=== PATIENT | female | born 1935 | race Caucasian/White ===

== ENCOUNTER 2016-06-05 16:47 | Inpatient (IN) | payer MEDICARE ==
--- NOTE | ~2016-06-05 | HP ---
History And Physical [id number] [place]. [address] NAME: AXEL LINDO : 33 STATUS : ADM IN [facility]#: [id number] AGE: 80 ADM/REG DATE : 06/05/16 MR#: [id number] REPORT SERV DATE: 06/06/16 DICTATED BY: TORI DILLARD DATE: 06/06/16 REPORT STATUS : Draft TRANSCRIBED BY: MODWiley DATE: 06/06/16 DATE OF ADMISSION: 06/05/2016 CHIEF COMPLAINT: An 80-year-old female presenting with increasing shortness of breath and confusion. HISTORY OF PRESENT ILLNESS: The patient's history was obtained through careful interview with the patient and son, coupled with review of [facility] medical records. The patient has been at [facility] since 02/2016 when she underwent a left hip replacement. She has had poor recovery despite attempts with physical therapy to improve her condition, although she has successfully begun to walk some and use a walker. She still cannot do simple things like bathe on her own or dress herself. Over the last two days, she has had particular difficulty with physical therapy and any kind of activity. She developed dyspnea on exertion and a cough productive of yellow sputum. Two days ago, she was placed on a Z-Sathish, but it has not helped her condition at all. She has had subjective fevers and chills, and apparently, one measured up to 100.2. She describes chronic mid lower back discomfort, aching quality, but states it is only a 2/10 severity. Then, finally, today, the patient became confused, disoriented, began hallucinating, and developed paranoid delusional thought patterns. She has had nausea, but no vomiting, no diarrhea. She has chronic lower extremity edema. No lightheadedness. The patient does occasionally have dysphagia. This is a chronic problem though and is not particularly worsened with this illness. No chest pain. No abdominal pain. REVIEW OF SYSTEMS: Otherwise, a 14-point review of systems was obtained and was negative. PAST MEDICAL HISTORY: 1. Coronary artery disease, status post CABG. 2. Diastolic congestive heart failure with left ventricular hypertrophy. 3. Asthma. 4. Pulmonary nodules with negative bronchoscopy, seen by Dr. Dutton. 5. Neuropathy. 6. Glaucoma. 7. Chronic lower extremity edema. 8. SIADH. History And Physical [address] [place]. [address] NAME: AXEL LINDO : 33 STATUS : ADM IN [facility]#: [id number] AGE: 80 ADM/REG DATE : 06/05/16 MR#: [id number] REPORT SERV DATE: 06/06/16 DICTATED BY: TORI DILLARD DATE: 06/06/16 REPORT STATUS : Draft TRANSCRIBED BY: EVELYN DATE: 06/06/16 9. Hypertension. 10.Elevated cholesterol. 11.Urinary tract infection with E. coli sepsis and bacteremia in 2015. 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 13.Paroxysmal atrial fibrillation. 14.Compression fractures of the spine. 15.Esophageal stricture. 16.Epidural injection of the spine. 17.Large hiatal hernia. 18.Cholelithiasis. PAST SURGICAL HISTORY: 1. Kyphoplasty x2. 2. CABG in 2003. 3. Left patella surgery. 4. Hysterectomy. 5. Urethral sling. 6. Left shoulder surgery. 7. Left hip surgery in 02/2016. ALLERGIES: PENICILLIN, NEOMYCIN, AND SULFA. SOCIAL HISTORY: Never been a smoker. Does not drink alcohol. Has one son. Now resides at [facility]. Has been a for about 12 years. 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 FAMILY HISTORY: Father with bipolar disorder. She has no siblings. CURRENT MEDICATIONS: Unknown at this time, but have been requested from pharmacy. PHYSICAL EXAMINATION: VITAL SIGNS: Temperature 99, pulse 108, blood pressure 147/73, respiratory rate 23, O2 saturation 93% on 4 L nasal cannula. GENERAL: An ill-appearing female in some distress secondary to shortness of breath. HEENT: Pupils equal, round, and reactive to light. No conjunctival pallor. No scleral icterus. Nares are patent. Oropharynx is clear of obstruction. Moist mucous membranes. NECK: Trachea midline. No thyromegaly. LYMPH: No cervical lymphadenopathy. No supraclavicular lymphadenopathy. RESPIRATORY: The patient has significant focal egophony in the right lower and middle lung with diminished breath sounds. There are scattered upper respiratory rhonchi on examination too, but no current wheezes. No wet rales. No dullness to percussion to suggest effusion. The patient has a quite labored respiratory effort. CARDIOVASCULAR: Tachycardic. Regular rhythm. No murmurs, rubs, or gallops. No extremity edema is appreciated other than chronic changes. ABDOMEN: Soft, nontender, nondistended. Normal bowel sounds auscultated throughout. No History And Physical [address] [address] NAME: AXEL LINDO : 33 STATUS : ADM IN PAT#: [id number] AGE: 80 ADM/REG DATE : 06/05/16 MR#: [id number] REPORT SERV DATE: 06/06/16 DICTATED BY: TORI DILLARD DATE: 06/06/16 REPORT STATUS : Draft TRANSCRIBED BY: EVELYN DATE: 06/06/16 hepatosplenomegaly. DERMATOLOGICAL: Warm and dry extremities. No pallor. No cyanosis. PSYCHIATRIC: Normal affect. Good mood. Alert and oriented x3. LABORATORY DATA: White blood cell count 15, hemoglobin 13, hematocrit 39, platelets 392. Sodium 135, potassium 3.8, chloride 92, bicarb 34, BUN 7, creatinine 0.56, glucose 108. Brain natriuretic peptide 172. Troponin negative. Lactic acid 0.5. INR 1.3. ABG demonstrates a pH of 7.42, a PaCO2 of 52, a PaO2 of 71, and a bicarb of 33. STUDIES: Chest x-ray by my own evaluation shows dense right middle lung pneumonia compared to 02/2016. ASSESSMENT AND PLAN: 1. Sepsis with white blood cell count of 15, tachycardia, tachypnea, hypoxic encephalopathy. Check blood cultures. Place on IV antibiotics. 2. Facility-acquired pneumonia. Check blood cultures. Check sputum culture. Place on IV antibiotics. 3. Chronic dysphagia. Obtain a speech therapy evaluation. Check swallow studies. 4. Late effects of polio. 5. Hypoxemic respiratory failure. Provide supportive care. COLEL/EVELYN Tori Dillard M.D. / [id number] CC: Nancy Crews M.D. David Bowers, M.D.
--- NOTE | ~2016-06-05 | DS ---
Discharge Summary [facility] [address] [facility] [place] [place]. [address] NAME: AXEL MARTÍNEZ : 33 STATUS : DIS IN PAT#: [id number] AGE: 80 ADM/REG DATE : 06/05/16 MR#: [id number] REPORT SERV DATE: 06/14/16 DICTATED BY: YANDEL BAEZ DATE: 06/14/16 REPORT STATUS : Draft TRANSCRIBED BY: MODL DATE: 06/14/16 ADMISSION DATE: 06/05/2016 DISCHARGE DATE: 06/14/2016 REASON FOR ADMISSION: Acute respiratory failure and acute asthma exacerbation, acute on chronic diastolic heart failure exacerbation and pneumonia. HISTORY OF PRESENT ILLNESS: Please refer to Dr. Baljinder Marinelli's history and physical dated 06/08/2011 for complete details regarding the patient's admission. In brief, the patient was admitted to the Hospitalist Service for sepsis secondary to pneumonia along with asthma exacerbation and hypoxic failure. HOSPITAL COURSE: From admission to 06/10/2016, please refer to Dr. Vikki Doe's interim summary. In brief, Dr. Doe had diagnosed the patient with acute respiratory failure likely secondary to diastolic dysfunction and asthma exacerbation along with urinary retention, hypertension, and chronic dysphagia. The patient was initially treated with IV steroids, bronchodilators, and showed some improvement along with some IV diuretics. I assumed care of this patient by Dr. Doe on 06/11/2016, at which point, her sputum culture came back positive for Pseudomonas and Klebsiella. I then started IV Levaquin on her. Her diuresis was then switched from IV to oral. Physical Therapy had recommended going back to [facility] for rehab. She was in a stable condition at the time of discharge. Her lung exam was clear to auscultation. She has reached maximal hospitalization and is stable for discharge. DISCHARGE DIAGNOSES: Sepsis secondary to Klebsiella and Pseudomonas pneumonia; acute on chronic hypoxic respiratory failure, now resolved; acute on chronic diastolic heart failure exacerbation, now resolved; acute on chronic asthma exacerbation, now resolved; urinary retention, now resolved; chronic dysphagia; large hiatal hernia; and debility. PROCEDURES: Include chest x-ray. DISCHARGE MEDICATIONS: Include amlodipine 5 mg once a day, vitamin C, aspirin 81 mg once a day, Combigan eye drop every 12 hours in both eyes, BuSpar 10 mg twice a day, estradiol, ranitidine 300 mg at bedtime, iron sulfate 325 mg twice a day, furosemide 20 mg daily, gabapentin 100 mg daily, Xalatan one drop at bedtime, Remeron 15 mg at bedtime, Singulair daily, multivitamin daily, Nexium 40 mg daily, MiraLAX daily, Klor-Con 20 mEq daily, Zoloft 50 mg daily, Asmanex and DuoNebs p.r.n., Crestor 10 mg daily, tramadol p.r.n., Atarax p.r.n., and Levaquin 750 mg once a day for seven days. This is Dr. Yandel Baez spending over 30 minutes in discharge planning and coordination of care of Ms. Martínez. GENEVIEVE/EVELYN Yandel Zavala Discharge Summary [address] [address] NAME: AXEL MARTÍNEZ : 33 STATUS : DIS IN PAT#: [id number] AGE: 80 ADM/REG DATE : 06/05/16 MR#: [id number] REPORT SERV DATE: 06/14/16 DICTATED BY: YANDEL BAEZ DATE: 06/14/16 REPORT STATUS : Draft TRANSCRIBED BY: EVELYN DATE: 06/14/16 MD Nestor / [id number] CC: MD Laith Pathak M.D.
--- NOTE | ~2016-06-05 | IDS ---
Interim Discharge Summary [facility] [address] [place]. [address] NAME: AXEL LINDO : 33 STATUS : ADM IN [facility]#: [id number] AGE: 80 ADM/REG DATE : 06/05/16 MR#: [id number] REPORT SERV DATE: 06/10/16 DICTATED BY: VIKKI DOE DATE: 06/10/16 REPORT STATUS : Draft TRANSCRIBED BY: MODL DATE: 06/10/16 ADMISSION DATE: 06/05/2016 DISCHARGE DATE: PROBLEM LIST: 1. Acute respiratory failure, multifactorial, more likely related to diastolic dysfunction and asthma exacerbation. 2. Acute and chronic asthma exacerbation. 3. Acute on chronic diastolic dysfunction. She was treated with IV steroid and IV diuretics and improved significantly. 4. Hypertension. 5. Urinary retention, status post Ledbetter catheter insertion and the Ledbetter was discontinued today. 6. Chronic dysphagia. 7. No evidence of pneumonia on this admission. HISTORY OF PRESENT ILLNESS: This is an 80-year-old [facility] long-term resident, came to the hospital with short of breath. Please see dictated H and P. HOSPITAL COURSE: She has been having issue with dysphagia and cough for a while. When she came in here, her procalcitonin was less than 0.05 and also x-ray did not show significant infiltrates. The patient has been treated for asthma exacerbation with IV steroid and bronchodilator and had improvement, and also she was treated with IV diuretics and had improvement on her breathing and cough. She does have some coarse sound here and there. It has been getting dried much more along with this treatment. She had improvement overall. She is able to ambulate with minimal assistance. She does have chronic dysphagia, had a swallow evaluation, did not show significant symptoms of aspiration. She said she knows which food that she can take and she cannot take. Overall, had improvement. She is a very frail 80-year-old female patient. She is using an oxygen on and off from [facility], and she is on two to three liters of oxygen and making adequate oxygenation. She had improvement and she has been making good I's and O's negative. In order to return her [facility] and long time, we had to have the PT evaluation and reapproval from the insurance company which has started the work today. She will be on bronchodilator treatment and nebulizer treatment and systemic steroid with oral prednisone and waiting for the discharge approval. DYLAN/EVELYN Vikki Doe M.D. / [id number] Interim Discharge Summary [address] [address] NAME: AXEL LINDO : 33 STATUS : ADM IN PAT#: [id number] AGE: 80 ADM/REG DATE : 06/05/16 MR#: [id number] REPORT SERV DATE: 06/10/16 DICTATED BY: VIKKI DOE DATE: 06/10/16 REPORT STATUS : Draft TRANSCRIBED BY: EVELYN DATE: 06/10/16 CC: Nancy Crews RICHARD CURTIS
[~2016-06-05 16:47] MED LIST: 8 HOUR650 MG PO; A AND D T; A&D OINTMENT TOP; ACET500CAP PO; ADVIL PO; ALEVE220 MG PO; ASAB PO; ASMANEX100 INH; ASMANEX200 INH; AT25 PO; ATV1 PO; BACDS PO; BL FLAX SEED1000 MG PO; CENTRUM PO; CLOBETASOL0.051 EX; CLOBETASOL0.051 TOP; COMBIGAN0.2 MG/0.5 OP; COMBIGAN0.2 MG/0.5 OPH; COZAAR100 MG PO; CRESTOR10 PO; DIOV160 PO; ESTRACE VAG0.1 MG/GM V; ESTRACE VAGIN42.5 GM V; ESTRACE0.5 MG TOP; FLAXSEED OIL1000 MG PO; FOSAMAX70 MG PO; GLUCCHONDR PO; GLUCOSAMINE1 TA2 PO; GLUCOSAMINEPO PO; L20 PO; LIQUID TEARS OP; MIRALAXPKT PO; MULTIPLE VIT PO; NEUR100 PO; NEXIUM40 PO; NITROQUICK0.4 MG SL; NORCO1 TAB PO; NORV5 PO; OS500+D PO; PRILO PO; PRIN10 PO; PROAIR HFA INH; SENTAB PO; SILTUSSIN100 MG/5 M PO; SINGULAIR1 PO; TEMOVATE0.051 TOP; TRAVATAN Z0.004 % OPH; TRIMO-SAN VA; VITAMIN D31000 UNIT PO; VITC500 PO; XALAT OPH; ZANTAC300 MG PO
[2016-06-05 17:24] LABS: ALLENS TEST Pos; BE (BASE EXCESS) 7.2 MEQ/L (0 +/- 2.5); CARBOXYHEMOGLOBIN 1.3 % (0-3); DEVICE NC; HCO3 (ACTUAL BICARBONATE) 33.1 MEQ/L (23-27); HEMOBLOGIN CONTENT 13.5 G/DL (12-16); INSTRUMENT SERIAL # 8087; METHEMOGLOBIN 0.3 % (0-3); O2 CONTENT 17.6 VOL% (18-24); PCO2 (CO2 TENSION) 52 MMHG (35-45); PO2 (O2 TENSION) 71 MMHG (79-93); SAMPLE Arterial; pH 7.42 (7.37-7.43)
[2016-06-05 17:50] LABS: BASOPHILS 0.2 %; BASOPHILS ABSOLUTE 0.03 10/3/uL (0.0-0.16); EOSINOPHILS 0.6 %; EOSINOPHILS ABSOLUTE 0.09 10/3/uL (0.0-0.53); HEMATOCRIT 39.3 % (36.0-48.0); HEMOGLOBIN 12.8 g/dL (12.0-16.0); IMMATURE GRANULOCYTES 0.3 %; IMMATURE GRANULOCYTES ABSOLUTE 0.05 10/3/uL (0.0-0.11); LYMPHOCYTES 7.1 %; LYMPHOCYTES ABSOLUTE 1.06 10/3/uL (0.67-4.30); MEAN CORPUS HGB CONC 32.6 g/dL (32.0-36.0); MEAN CORPUSCULAR HEMOGLOB 30.8 pg (26.0-34.0); MEAN CORPUSCULAR VOLUME 94.7 fL (80-100); MONOCYTES 7.4 %; MONOCYTES ABSOLUTE 1.11 10/3/uL (0.21-1.20); NEUTROPHILS 84.4 %; NEUTROPHILS ABSOLUTE 12.64 10/3/uL (2.02-8.40); RBC DISTRIBUTION WIDTH 13.4 % (12.0-16.0); RED CELL COUNT 4.15 10/6/uL (4.0-5.6)
[2016-06-05 17:51] LABS: ER CBC TAT 0 Hrs 07 Mins; MANUAL DIFF NO %; PLATELET COUNT 392 10/3/uL (150-400)
[2016-06-05 18:04] LABS: INTERNATIONAL NORMAL RATI 1.3 UNITS (-)
[2016-06-05 18:06] LABS: CHEST PAIN PROFILE TAT 0 Hrs 22 Mins; CHLORIDE, SERUM 92 MMOL/L (96-112); CO2 (CARBON DIOXIDE) 34 MMOL/L (24-34); CREATININE 0.56 MG/DL (0.55-1.02); GFR AFRICAN AMERICAN 101 ML/MIN (>=60); GFR NON AFRICAN AMERICAN 87 ML/MIN (>=60); POTASSIUM, SERUM 3.8 MMOL/L (3.5-5.3); PROTIME (NOT ORD) 15.7 SEC (12.0-14.5); SODIUM, SERUM 135 MMOL/L (135-148); TROPONIN I <0.02 NG/ML (<0.05)
[2016-06-05 18:07] LABS: BUN (BLOOD UREA NITROGEN) 7 MG/DL (6-23); GLUCOSE, SERUM 108 MG/DL (60-99)
[2016-06-05 18:20] LABS: LACTATE 0.5 MMOL/L (0.3-2.4)
[2016-06-05] MEDS ORDERED: ACETYLCYSTEINE INH (20:20)
[2016-06-05] MEDS ORDERED: ASMANEX200 INH (20:21)
[2016-06-05] MEDS ORDERED: NORV5 PO (20:21)
[2016-06-05] MEDS ORDERED: ZITH250 PO (20:22)
[2016-06-05] MEDS ORDERED: ASAB PO (20:22)
[2016-06-05] MEDS ORDERED: BUSPAR10 PO (20:23)
[2016-06-05] MEDS ORDERED: COMBIGAN0.2 MG/0.5 OPH (20:24)
[2016-06-05] MEDS ORDERED: ESTRACE VAGIN42.5 GM V (20:25)
[2016-06-05] MEDS ORDERED: FERROUS SULF325 M1 PO (20:25)
[2016-06-05] MEDS ORDERED: MIRALAX POWDER1 PKT PO (20:26)
[2016-06-05] MEDS ORDERED: NEUR100 PO (20:26)
[2016-06-05] MEDS ORDERED: L20 PO (20:26)
[2016-06-05] MEDS ORDERED: DUONEB INH (20:27)
[2016-06-05] MEDS ORDERED: REM15 PO (20:27)
[2016-06-05] MEDS ORDERED: XALAT OPH (20:27)
[2016-06-05] MEDS ORDERED: MULTIVITAMI1 PO (20:28)
[2016-06-05] MEDS ORDERED: SINGULAIR1 PO (20:28)
[2016-06-05] MEDS ORDERED: NEXIUM40 PO (20:28)
[2016-06-05] MEDS ORDERED: RANITIDINE300 MG PO (20:29)
[2016-06-05] MEDS ORDERED: KLOR-CON M2020 MEQ PO (20:29)
[2016-06-05] MEDS ORDERED: ULTRAM50 PO (20:30)
[2016-06-05] MEDS ORDERED: CRESTOR10 PO (20:30)
[2016-06-05] MEDS ORDERED: ZOL50 PO (20:30)
[2016-06-05] MEDS ORDERED: VITC500 PO (20:31)
[2016-06-05] MEDS ORDERED: AT25 PO (20:31)
[2016-06-05] MEDS ORDERED: SILTUSSIN100 MG/5 M PO (20:32)
[2016-06-06 06:06] LABS: ASCORBIC ACID (UR NOT ORDER) NEG (NEG); BILIRUBIN, URINE NEGATIVE (NEG); KETONE, URINE NEGATIVE (NEG); WBC (NOT ORDERED) (RFLEX) 13 (0-5)
[2016-06-06 06:18] LABS: LEUKOCYTE ESTERASE(NOT OR TRACE (NEG)
[2016-06-06 08:36] LABS: ALBUMIN 2.3 G/DL (3.5-5.0); CALCIUM, SERUM 9.1 MG/DL (8.5-10.4); CHLORIDE, SERUM 98 MMOL/L (96-112); CREATININE 0.48 MG/DL (0.55-1.02); GFR AFRICAN AMERICAN 106 ML/MIN (>=60); GFR NON AFRICAN AMERICAN 91 ML/MIN (>=60); POTASSIUM, SERUM 4.2 MMOL/L (3.5-5.3); SGOT(AST) 14 U/L (5-40); SGPT(ALT) 20 U/L (5-65); SODIUM, SERUM 136 MMOL/L (135-148); TROPONIN I <0.02 NG/ML (<0.05)
[2016-06-06 08:38] LABS: A/G RATIO 0.4 (0.7-1.9); ALKALINE PHOSPHATASE 91 U/L (45-117); BUN (BLOOD UREA NITROGEN) 13 MG/DL (6-23); CO2 (CARBON DIOXIDE) 29 MMOL/L (24-34); GLOBULIN 5.3 G/DL (2.5-4.1); GLUCOSE, SERUM 132 MG/DL (60-99); TOTAL BILIRUBIN 0.2 MG/DL (0-1.2); TOTAL PROTEIN 7.6 G/DL (6.0-8.5)
[2016-06-06 09:00] LABS: HEMATOCRIT 36.7 % (36.0-48.0); MEAN CORPUS HGB CONC 32.7 g/dL (32.0-36.0); MEAN CORPUSCULAR HEMOGLOB 30.5 pg (26.0-34.0); MEAN CORPUSCULAR VOLUME 93.1 fL (80-100); MEAN PLATELET VOLUME 9.7 fL (9.2-13.0); PLATELET COUNT 384 10/3/uL (150-400); RBC DISTRIBUTION WIDTH 13.4 % (12.0-16.0); RED CELL COUNT 3.94 10/6/uL (4.0-5.6); WHITE BLOOD CELLS 11.9 10/3/uL (4.5-10.5)
[2016-06-06 09:03] LABS: MANUAL DIFF YES %
[2016-06-06 09:41] LABS: BAND NEUTROPHILS 3 %; LYMPHOCYTES 2 %; LYMPHOCYTES ABSOLUTE (CALC) 0.24 10/3/uL (0.67-4.30); MONOCYTES 3 %; MONOCYTES ABSOLUTE (CALC) 0.36 10/3/uL (0.21-1.20); NEUTROPHILS ABSOLUTE (CALC) 11.31 10/3/uL (2.02-8.40); PLATELET ESTIMATE ADQ (ADEQUATE); SEGMENTED NEUTROPHIL (0) 92 %; TOTAL NUCLEATED CELLS 100
[2016-06-06 09:42] LABS: RBC MORPHOLOGY NORM (NORMAL)
[2016-06-06 09:42] LABS: PROCALCITONIN <0.05 ng/mL (<0.5)
[2016-06-06 10:08] LABS: INTERNATIONAL NORMAL RATI 1.3 UNITS (-); PROTIME (NOT ORD) 16.1 SEC (12.0-14.5)
[2016-06-06 10:10] LABS: PARTIAL THROMBO TIME 31.3 SEC (22.5-37.2)
[2016-06-07 06:50] LABS: BASOPHILS 0 %; EOSINOPHILS 0 %; HEMATOCRIT 36.6 % (36.0-48.0); IMMATURE GRANULOCYTES 0.2 %; IMMATURE GRANULOCYTES ABSOLUTE 0.03 10/3/uL (0.0-0.11); LYMPHOCYTES 4.9 %; LYMPHOCYTES ABSOLUTE 0.71 10/3/uL (0.67-4.30); MEAN CORPUS HGB CONC 32.8 g/dL (32.0-36.0); MEAN CORPUSCULAR HEMOGLOB 30.8 pg (26.0-34.0); MEAN CORPUSCULAR VOLUME 93.8 fL (80-100); MEAN PLATELET VOLUME 9.9 fL (9.2-13.0); MONOCYTES 2.9 %; MONOCYTES ABSOLUTE 0.43 10/3/uL (0.21-1.20); NEUTROPHILS ABSOLUTE 13.45 10/3/uL (2.02-8.40); PLATELET COUNT 444 10/3/uL (150-400); RBC DISTRIBUTION WIDTH 13.3 % (12.0-16.0); WHITE BLOOD CELLS 14.6 10/3/uL (4.5-10.5)
[2016-06-07 06:54] LABS: CALCIUM, SERUM 9.3 MG/DL (8.5-10.4); CHLORIDE, SERUM 96 MMOL/L (96-112); CO2 (CARBON DIOXIDE) 33 MMOL/L (24-34); CREATININE 0.71 MG/DL (0.55-1.02); GFR AFRICAN AMERICAN 92 ML/MIN (>=60); GFR NON AFRICAN AMERICAN 79 ML/MIN (>=60); GLUCOSE, SERUM 146 MG/DL (60-99); POTASSIUM, SERUM 3.9 MMOL/L (3.5-5.3); SODIUM, SERUM 138 MMOL/L (135-148)
[2016-06-07 06:57] LABS: BUN (BLOOD UREA NITROGEN) 29 MG/DL (6-23)
[2016-06-07 06:59] LABS: MANUAL DIFF NO %
[2016-06-08 04:08] LABS: BUN (BLOOD UREA NITROGEN) 34 MG/DL (6-23); CALCIUM, SERUM 9.2 MG/DL (8.5-10.4); CHLORIDE, SERUM 93 MMOL/L (96-112); CO2 (CARBON DIOXIDE) 34 MMOL/L (24-34); CREATININE 0.84 MG/DL (0.55-1.02); GFR AFRICAN AMERICAN 75 ML/MIN (>=60); GFR NON AFRICAN AMERICAN 65 ML/MIN (>=60); GLUCOSE, SERUM 134 MG/DL (60-99); POTASSIUM, SERUM 4.7 MMOL/L (3.5-5.3); SODIUM, SERUM 138 MMOL/L (135-148)
[2016-06-09 05:40] LABS: BUN (BLOOD UREA NITROGEN) 42 MG/DL (6-23); CALCIUM, SERUM 9.4 MG/DL (8.5-10.4); CHLORIDE, SERUM 93 MMOL/L (96-112); CO2 (CARBON DIOXIDE) 38 MMOL/L (24-34); CREATININE 0.86 MG/DL (0.55-1.02); GFR AFRICAN AMERICAN 73 ML/MIN (>=60); GFR NON AFRICAN AMERICAN 63 ML/MIN (>=60); GLUCOSE, SERUM 137 MG/DL (60-99); POTASSIUM, SERUM 4.3 MMOL/L (3.5-5.3); SODIUM, SERUM 139 MMOL/L (135-148)
[2016-06-11 05:56] LABS: BUN (BLOOD UREA NITROGEN) 31 MG/DL (6-23); CALCIUM, SERUM 9.2 MG/DL (8.5-10.4); CHLORIDE, SERUM 97 MMOL/L (96-112); CO2 (CARBON DIOXIDE) 35 MMOL/L (24-34); CREATININE 0.66 MG/DL (0.55-1.02); GFR AFRICAN AMERICAN 95 ML/MIN (>=60); GFR NON AFRICAN AMERICAN 82 ML/MIN (>=60); GLUCOSE, SERUM 100 MG/DL (60-99); SODIUM, SERUM 140 MMOL/L (135-148)
[2016-06-13 06:33] LABS: BASOPHILS 0 %; EOSINOPHILS 0.4 %; EOSINOPHILS ABSOLUTE 0.07 10/3/uL (0.0-0.53); HEMATOCRIT 39.8 % (36.0-48.0); HEMOGLOBIN 12.7 g/dL (12.0-16.0); IMMATURE GRANULOCYTES 0.7 %; IMMATURE GRANULOCYTES ABSOLUTE 0.13 10/3/uL (0.0-0.11); LYMPHOCYTES 3.6 %; LYMPHOCYTES ABSOLUTE 0.69 10/3/uL (0.67-4.30); MEAN CORPUS HGB CONC 31.9 g/dL (32.0-36.0); MEAN PLATELET VOLUME 9.8 fL (9.2-13.0); MONOCYTES 3.3 %; MONOCYTES ABSOLUTE 0.64 10/3/uL (0.21-1.20); NEUTROPHILS ABSOLUTE 17.58 10/3/uL (2.02-8.40); PLATELET COUNT 518 10/3/uL (150-400); RBC DISTRIBUTION WIDTH 13.8 % (12.0-16.0); WHITE BLOOD CELLS 19.1 10/3/uL (4.5-10.5)
[2016-06-13 06:35] LABS: MANUAL DIFF NO %; MEAN CORPUSCULAR VOLUME 97.1 fL (80-100)
[2016-06-14 06:37] LABS: BASOPHILS 0.1 %; BASOPHILS ABSOLUTE 0.01 10/3/uL (0.0-0.16); EOSINOPHILS 0.7 %; EOSINOPHILS ABSOLUTE 0.07 10/3/uL (0.0-0.53); HEMATOCRIT 34.3 % (36.0-48.0); HEMOGLOBIN 11.2 g/dL (12.0-16.0); IMMATURE GRANULOCYTES 0.8 %; IMMATURE GRANULOCYTES ABSOLUTE 0.08 10/3/uL (0.0-0.11); LYMPHOCYTES 4.8 %; LYMPHOCYTES ABSOLUTE 0.48 10/3/uL (0.67-4.30); MANUAL DIFF NO %; MEAN CORPUS HGB CONC 32.7 g/dL (32.0-36.0); MEAN CORPUSCULAR HEMOGLOB 30.6 pg (26.0-34.0); MEAN CORPUSCULAR VOLUME 93.7 fL (80-100); MEAN PLATELET VOLUME 9.7 fL (9.2-13.0); MONOCYTES 4.9 %; MONOCYTES ABSOLUTE 0.49 10/3/uL (0.21-1.20); NEUTROPHILS 88.7 %; NEUTROPHILS ABSOLUTE 8.91 10/3/uL (2.02-8.40); PLATELET COUNT 354 10/3/uL (150-400); RED CELL COUNT 3.66 10/6/uL (4.0-5.6)
[2016-06-14 06:52] LABS: CALCIUM, SERUM 8.7 MG/DL (8.5-10.4); CHLORIDE, SERUM 99 MMOL/L (96-112); CO2 (CARBON DIOXIDE) 33 MMOL/L (24-34); GFR AFRICAN AMERICAN 80 ML/MIN (>=60); GFR NON AFRICAN AMERICAN 69 ML/MIN (>=60); POTASSIUM, SERUM 3.6 MMOL/L (3.5-5.3); SODIUM, SERUM 138 MMOL/L (135-148)
[2016-06-14 06:55] LABS: BUN (BLOOD UREA NITROGEN) 21 MG/DL (6-23); GLUCOSE, SERUM 126 MG/DL (60-99)
== END 2016-06-14 14:37 | DRG 871 ==
LOC: ER 16:47 → 7NO 19:30
PROVIDERS: Emergency Medicine; Hospitalist; Internal Medicine
DX: A41.9 Sepsis, unspecified organism (principal); I50.33 Acute on chronic diastolic (congestive) heart failure; J96.21 Acute and chronic respiratory failure with hypoxia; J15.0 Pneumonia due to Klebsiella pneumoniae; J15.1 Pneumonia due to Pseudomonas; R13.10 Dysphagia, unspecified; I11.0 Hypertensive heart disease with heart failure; J45.901 Unspecified asthma with (acute) exacerbation; B91 Sequelae of poliomyelitis; R33.9 Retention of urine, unspecified; K44.9 Diaphragmatic hernia without obstruction or gangrene; R53.81 Other malaise
CPT/HCPCS: 36600; 71010; 80048; 80053; 81001; 82805; 83605; 83735; 83880; 84145; 84443; 84484; 85025; 85610; 85730; 87040; 87070; 87077; 87186; 87205; 87449; 92610-GN; 94640; 94668; 96374; 97110-GP; 97116-GP; 97162-GP; 97165-GO; 97530-GP; 99285; A9270-GY; J0692; J1956; J2920; J2930; J3370; P9047

== ENCOUNTER → 2016-07-30 23:30 | Emergency (ER) | payer MEDICARE ==
[~2016-07-30 23:30] MED LIST changes: +ACETYLCYSTEINE INH; +BUSPAR10 PO; +BUSPAR5 PO; +DUONEB INH; +DURICEF; +FERROUS SULF325 M1 PO; +KLOR-CON M2020 MEQ PO; +MIRALAX POWDER1 PKT PO; +MONODOX100 MG PO; +MUCINEX600 MG PO; +MULTIVIT/MIN PO; +MULTIVITAMI1 PO; +RANITIDINE300 MG PO; +REM15 PO; +T PO; +ULTRAM50 PO; +ZITH250 PO; +ZOFRAN ODT4 MG PO; +ZOL50 PO; +ZOLOFT25 MG PO
== END | disposition left against medical advice (07) ==
LOC: ER 23:30
DX: Z53.21 Procedure and treatment not carried out due to patient leaving prior to being seen by health care provider (principal); Z88.0 Allergy status to penicillin; Z88.2 Allergy status to sulfonamides; Z88.1 Allergy status to other antibiotic agents; Z79.899 Other long term (current) drug therapy; Z79.82 Long term (current) use of aspirin
CPT/HCPCS: 93005

== ENCOUNTER 2016-08-17 14:37 | Inpatient (IN) | payer MEDICARE ==
--- NOTE | ~2016-08-17 | HP ---
History And Physical [address] [facility] [place]. [address] NAME: AXEL LINDO : 33 STATUS : ADM IN [facility]#: [id number] AGE: 80 ADM/REG DATE : 08/17/16 MR#: [id number] REPORT SERV DATE: 08/17/16 DICTATED BY: CAITLYN PRASAD DATE: 08/17/16 REPORT STATUS : Draft TRANSCRIBED BY: MODL DATE: 08/17/16 DATE OF ADMISSION: 08/17/2016 CHIEF COMPLAINT: Shortness of breath and altered mental status. HISTORY OF PRESENT ILLNESS: Obtained from patient who is a rather very poor historian, as well as from emergency room documents and reports apparently from the patient's [place] [facility] when the patient was sent over to our facility. Also, prior medical records available to us were thoroughly reviewed. According to the information available, the patient is a frail, 80-year-old woman, who was actually admitted two months ago at the end 05/2016 under Hospitalist Service with similar symptoms of increasing shortness of breath and confusion, who was sent over to our emergency room because of shortness of breath. Apparently, for about a week, the patient had symptoms of dyspnea with increasing cough, congestion, and wheezing. The patient had been on antibiotics for about a week with doxycycline for presumed UTI. She apparently finished seven days of treatment yesterday and she was restarted again on doxycycline p.o. today. Upon arrival in our emergency room, the patient was noticed to be ill appearing, short of breath, and further investigation revealed hypoxemia with an oxygen saturation around 88% on room air and increased vascular congestion with likely fluid overload. The patient denies any chest pain, denies palpitations. She has limited mobility at [facility] and denies paroxysmal nocturnal dyspnea or orthopnea. Denies any chills. Temperature documented there at 99. Denies palpitations. Denies URI-like symptoms. Denies dysuria or increased frequency or hematuria. Denies nausea or vomiting. She has some troubles with chronic dysphagia with sometimes difficulties "hurting" when she tries to eat. PAST MEDICAL HISTORY: Significant for asthma chronic with chronic pulmonary nodules, follow up in the past by Dr. Dutton, Pulmonology at the [facility], history of reported poliomyelitis as a child in the past with some restrictive lung disease since. History of CHF with diastolic dysfunction. Last 2D echo in 06/2015 showing 70% EF, history of hypertension, history of reported coronary artery disease, history of chronic hyponatremia supposedly secondary to SIADH, history of prior reported chronic lower extremity edema, history of neuropathy, history of glaucoma, history of hyperlipidemia, history recurrent urinary tract infection with Escherichia coli sepsis and bacteremia in 2016, history of reported arrhythmia and paroxysmal atrial fibrillation, history of GERD with esophageal strictures in the past, history of osteoarthritis and osteoporosis and degenerative disk disease and prior epidural injections, history of GERD and hiatal hernia. PAST SURGICAL HISTORY: Significant for hysterectomy, kyphoplasty x2, CABG in 2003, left patella surgery, urethral sling, left shoulder surgery, left hip surgery ORIF in 02/2016. FAMILY HISTORY: Significant for father with bipolar disorder, also history of hypertension. SOCIAL HISTORY: Never smoked. Denies alcohol abuse. Denies illicit recreational drug abuse. Has one son, has been for some time now. ALLERGIES: TO PENICILLIN AND NEOMYCIN AND BACTRIM. History And Physical [address] [address] NAME: AXEL LINDO : 33 STATUS : ADM IN [facility]#: [id number] AGE: 80 ADM/REG DATE : 08/17/16 MR#: [id number] REPORT SERV DATE: 08/17/16 DICTATED BY: CAITLYN PRASAD DATE: 08/17/16 REPORT STATUS : Draft TRANSCRIBED BY: EVELYN DATE: 08/17/16 MEDICATIONS AT HOME/OUTPATIENT: According to the list provided, the patient is supposed to take Tylenol 650 mg p.o. q.6 hours p.r.n. pain; DuoNebs q.4 hours p.r.n. shortness of breath; albuterol; ProAir two puffs inhalation q.4 hours p.r.n. shortness of breath; Norvasc 5 mg p.o. q.a.m.; vitamin C 500 mg p.o. daily; aspirin 81 mg p.o. daily; Combigan ophthalmic drops one drop both eyes q.12 hours; BuSpar 10 mg p.o. b.i.d.; doxycycline 100 mg p.o. b.i.d., started today again after she completed seven days of treatment yesterday on 08/16/2016; Nexium 40 mg p.o. q.a.m.; Estrace vaginal cream one application every seven day; iron sulfate 325 mg p.o. b.i.d.; Lasix 20 mg p.o. q.a.m.; Neurontin 100 mg p.o. q.a.m.; Mucinex p.r.n. cough; hydroxyzine 12.5 mg p.o. at bedtime p.r.n. itching; Xalatan ophthalmic drops one drop both eyes at bedtime; Remeron 15 mg p.o. at bedtime; Asmanex HFA 200 mcg per inhalation two puffs b.i.d.; Singulair 10 mg p.o. at bedtime; multiple vitamin and minerals one tablet p.o. daily; MiraLAX one packet every other; potassium KCl 20 mEq p.o. q.a.m.; Zantac 300 mg p.o. at bedtime; Crestor 10 mg p.o. at bedtime; Zoloft 75 mg p.o. q.a.m.; Ultram 50 mg p.o. q.6 hours p.r.n. pain. REVIEW OF SYSTEMS: Per H and P, otherwise negative in all review of systems. Please note that the comprehensive review of system was obtained and pertinent positives were including in the H and P. PHYSICAL EXAMINATION: GENERAL: Pleasant, cooperative, presently and clinically improved. The patient is at baseline with mental status, awake and alert, able to offer information and participate in the physical exam. VITAL SIGNS: Upon arrival in the emergency room, blood pressure 166/72, pulse 72, respiratory rate 22, temperature 98.2, oxygen saturation 91% on room air initially, later on documented at 88% on room air as per emergency room documents. HEENT: Bilateral cataracts. Extraocular movements intact. Throat, mild erythema. No exudate. Poor dentition. No signs of tenderness. NECK: Supple. No JVD. No bruits. No thyromegaly. No lymph nodes. LUNGS: Bilateral air entry with few bibasilar crackles and few scattered wheezes. HEART: Positive S1, S2. Regular rate and rhythm. Positive mitral regurgitation murmur at the apex. Positive aortic sclerosis murmur. ABDOMEN: Positive bowel sounds. Soft, nontender, no guarding, no hepatosplenomegaly. EXTREMITIES: Decreased range of motion with osteoarthritis changes. No clubbing, no cyanosis, no edema, no calf tenderness. +1 pulses bilateral. NEUROLOGIC: Alert and oriented x2 to x3, easily reoriented to time. Grossly nonfocal. Awake and alert. Pleasant with obvious generalized weakness and frailty. Cranial nerves 2 through 12 grossly intact. Motor strength 4/5 to 5/5 symmetrical bilateral. Deep tendon reflexes 2/2 symmetrical bilateral. BACK: With decreased range of motion. No focal localized tenderness. No CVA tenderness. SKIN: No bruises, no rashes, no lacerations. SIGNIFICANT LABORATORY DATA: Chest x-ray (personal reading) showed mild cardiomegaly, increased vascular congestion, no acute infiltrate. Sodium 127, potassium 3.9, chloride 92, bicarb 28, BUN 12, creatinine 0.54 and glucose 107, calcium 8.8, albumin level 3.2, History And Physical [address] [address] NAME: AXEL LINDO : 33 STATUS : ADM IN [facility]#: [id number] AGE: 80 ADM/REG DATE : 08/17/16 MR#: [id number] REPORT SERV DATE: 08/17/16 DICTATED BY: CAITLYN PRASAD DATE: 08/17/16 REPORT STATUS : Draft TRANSCRIBED BY: EVELYN DATE: 08/17/16 otherwise liver function tests within normal limits/benign appearance. Troponin I less than 0.02. BNP 121.6, slightly elevated from her previous known baseline. White cell count of 8.9, hemoglobin 14, platelet count 273. Urinalysis was cloudy with large LE, white cells more than 182, many bacteria. EKG (personal reading) showed normal sinus rhythm at 72 beats per minute. No acute ST elevation. ASSESSMENT AND PLAN AND PROBLEM LIST: The patient is a pleasant, 80-year-old white woman with multiple medical problems, presented with increasing shortness of breath, found to be hypoxemic with wheezing and increased vascular congestion, recurrent urinary tract infection. IMPRESSION: 1. Pulmonary. a. Acute hypoxemic respiratory failure. Likely cardiac and pulmonary etiology. b. Chronic obstructive pulmonary disease/chronic asthma exacerbation. For all the above, we are going to admit on the Hospitalist Service. We are going to provide oxygen supplementation, bronchodilator therapy with Dulera 200/5 mcg two puffs b.i.d. and DuoNeb nebs scheduled and p.r.n. shortness of breath, and albuterol. The patient was started on IV steroids in the emergency room, and we are going to continue with rapid tapering as allowed by improvement in her symptoms. Provide further symptomatic treatment with Mucinex DM for coughing, congestion, Flonase nasal spray, and oxygen supplementation. 2. Cardiovascular. a. Congestive heart failure exacerbation likely acute on chronic diastolic dysfunction with mild fluid overload. b. Hypertension, essential hypertension. c. Coronary artery disease, presently stable. d. For all the above, we are going to repeat a 2D echo (more than 12 months older echo available). Provide strict I's and O's and daily weights and fluid restriction. Gentle IV diuresis. The patient received 40 mg of Lasix IV in the emergency room with good urinary output. We are going to continue 20 mg IV for now. Continue Norvasc with "holding parameters." Check a CK-MB and troponin I and continue aspirin, use IV hydralazine p.r.n. for increased blood pressure, treat urinary tract infection. Possible recurrent with more resistant E coli from previous urine cultures are available. We are going to continue Rocephin 1 g IV daily. We will obtain urine culture. 3. Hyponatremia, likely SIADH, presently the patient with mild fluid overload. Therefore, we are going to continue and gentle diuresis while monitoring electrolytes. Encourage fluid restriction. 4. Anxiety and depression. Provide emotional support. Continue Zoloft. Continue Remeron. Continue p.r.n. Xanax. 5. Neuropathy. Continue small dose of Neurontin. 6. Hyperlipidemia mixed-type. We are going to continue low-cholesterol diet and continue statin. 7. Glaucoma. Continue ophthalmic drops. 8. Osteoarthritis, osteoporosis, deconditioning, and severe debilitation with degenerative History And Physical [address] [address] NAME: AXEL LINDO : 33 STATUS : ADM IN [facility]#: [id number] AGE: 80 ADM/REG DATE : 08/17/16 MR#: [id number] REPORT SERV DATE: 08/17/16 DICTATED BY: CAITLYN PRASAD DATE: 08/17/16 REPORT STATUS : Draft TRANSCRIBED BY: EVELYN DATE: 08/17/16 disk disease and chronic lower back pain. We are going to continue Ultram. Consider physical therapy evaluation. PROGNOSIS: Moderately good for this admission. Discussed with patient and questions were answered in full. Please note, the patient is a full code at this moment as discussed with the patient at bedside please note also the written H and P, and written orders and instructions. VIVIAN/EVELYN Caitlyn Prasad M.D. / [id number] CC: Laith Sewell M.D.
--- NOTE | ~2016-08-17 | CN ---
Consultation Report [facility] [address] [place]. [address] NAME: AXEL LINDO : 33 STATUS : DIS IN PAT#: [id number] AGE: 80 ADM/REG DATE : 08/17/16 MR#: [id number] REPORT SERV DATE: 09/22/16 DICTATED BY: ADITHYA FLORES DATE: 09/20/16 REPORT STATUS : Draft TRANSCRIBED BY: MODWiley DATE: 09/20/16 CONSULTATION DATE OF CONSULTATION: HISTORY OF PRESENT ILLNESS: This 80-year-old female is well known from prior evaluation. This consultation is for failed swallow study with request for PEG tube placement. She has a history of oropharyngeal dysphagia with swallowing therapy and E-stim in the past. Her last EGD was 06/23/2013, remarkable for Schatzki ring dilated to 51-Japanese, 13 mm hiatal hernia, multiple fundic gland polyps, and biopsies negative for Helicobacter pylori. Colonoscopy on 06/23/2013, revealed internal hemorrhoids, and sigmoid diverticulosis. Today's modified barium swallow study revealed silent aspiration with thin barium, nectar, and honey. She complains of food sticking and coughing with meals. She states her reflux symptoms are controlled with Nexium 40 mg q.a.m. and Zantac 300 mg at bedtime. PAST MEDICAL HISTORY: 1. Asthma. 2. Chronic pulmonary nodules. 3. History of CHF with diastolic dysfunction. 4. Chronic lower extremity edema. 5. Atrial fibrillation. 6. GERD. 7. History of esophageal stricture. 8. Osteoarthritis. 9. Osteoporosis. 10.Degenerative disc disease. PAST SURGICAL HISTORY: 1. Hysterectomy. 2. Kyphoplasty x2. 3. CABG 2003. 4. Left patella surgery. 5. Urethral sling. 6. Left shoulder surgery. 7. ORIF of the left hip, 02/2016. ALLERGIES: PENICILLIN, BACTRIM, AND NEOMYCIN. HOME MEDICATIONS: Include acetaminophen p.r.n., DuoNeb inhaler, ProAir, Norvasc, vitamin C, aspirin 81 mg daily, Combigan eyedrops, BuSpar, doxycycline, Nexium 40 mg daily, estradiol, ferrous sulfate 325 mg twice daily, Lasix, gabapentin, guaifenesin, Atarax p.r.n. at bedtime, Xalatan eyedrops, Remeron, Asmanex, Singulair, multivitamin, MiraLAX 17 g p.o. q.48 hours, potassium chloride, ranitidine 300 mg at bedtime, Crestor, Zoloft, and Ultram. PHYSICAL EXAMINATION: Consultation Report [place] [id number] [facility] [place] [address] NAME: AXEL LINDO : 33 STATUS : DIS IN PAT#: [id number] AGE: 80 ADM/REG DATE : 08/17/16 MR#: [id number] REPORT SERV DATE: 09/22/16 DICTATED BY: ADITHYA FLORES DATE: 09/20/16 REPORT STATUS : Draft TRANSCRIBED BY: MODL DATE: 09/20/16 VITAL SIGNS: Afebrile. Vital signs stable. GENERAL: Alert and oriented x3 at present. Son and [id number] at bedside. Confused at times. HEENT: Grossly within normal limits. CHEST: Bibasilar rales noted. CARDIOVASCULAR: Regular rate and rhythm. ABDOMEN: Soft, nondistended, nontender, active bowel sounds. EXTREMITIES: Without edema noted. LABORATORY DATA: WBC 14.8, hemoglobin 14.8. IMPRESSION: 1. Oropharyngeal dysphagia with aspiration. 2. Gastroesophageal reflux disease. PLAN: Discussed PEG tube placement and tube feedings with the patient, son, and daughter-in- law at length. The patient is still not ready to commit to PEG tube placement. I explained that Dr. Flores can place PEG tube tomorrow if she wishes. Family will discuss and will call to assess regarding decision in the morning. We will keep the patient n.p.o. after midnight. Yolie Sanz, Nurse Practitioner, dictating for Dr. Adithya Flores. /MODL Adithya Flores M.D. / [id number] CC: Nancy Jackson M.D. Young S Chang, MD
--- NOTE | ~2016-08-17 | DS ---
Discharge Summary [place] [id number] [place]. [address] NAME: AXEL LINDO : 33 STATUS : DIS IN PAT#: [id number] AGE: 80 ADM/REG DATE : 08/17/16 MR#: [id number] REPORT SERV DATE: 08/26/16 DICTATED BY: ANTON MURO DATE: 08/23/16 REPORT STATUS : Draft TRANSCRIBED BY: MODL DATE: 08/23/16 ADMISSION DATE: 08/17/2016 DISCHARGE DATE: 08/23/2016 DISCHARGE DIAGNOSES: 1. Acute hypoxemic respiratory failure. 2. Aspiration pneumonia. 3. Acute on chronic oropharyngeal dysphagia with failed modified barium swallow study, PEG tube declined at this time. 4. Acute exacerbation of chronic obstructive pulmonary disease. 5. Acute on chronic diastolic heart failure. 6. Encephalopathy, toxic metabolic present on admission, improved. 7. 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 8. Escherichia coli urinary tract infection with history of previous urinary tract infections in the setting of voiding dysfunction. 9. Anxiety and depression, on chronic treatment, doses cut 50% this admission because of encephalopathy. 10.History of polio. 11.Restrictive lung disease. 12.Obstructive lung disease. 13.History of pulmonary nodules, followed by Dr. Dutton. 14.Systemic hypertension. 15.Neuropathy. 16.Glaucoma. 17.Hyperlipidemia. 18.Edema. 19.Paroxysmal atrial fibrillation. 20.History of gastroesophageal reflux disease with esophageal strictures and previous dilatations. 21.Osteoarthritis. 22.Osteoporosis with history of compression fracture and kyphoplasty. 23.Coronary artery disease with previous CABG 2003. 24.Glaucoma. OPERATIONS AND PROCEDURES: None. PRESENT ILLNESS: This is an 80-year-old white female, resident of [facility] who was triaged to the emergency room on 08/17/2016 at 1322 hours with chief complaint of shortness of breath and change in mental status. Admission ER vital signs: Blood pressure 166/72, temperature 98.2, pulse 72, respirations 22, O2 saturation 91%. After evaluation in the emergency room, she was found to have a sodium of 127. Her ER diagnoses were hypoxia, COPD exacerbation, volume overload, and urinary tract infection. She was referred to the Hospitalist Service for admission. She was seen by Dr. Brady Discharge Summary [facility] [address] [place]. [address] NAME: AXEL LINDO : 33 STATUS : DIS IN PAT#: [id number] AGE: 80 ADM/REG DATE : 08/17/16 MR#: [id number] REPORT SERV DATE: 08/26/16 DICTATED BY: ANTON MURO DATE: 08/23/16 REPORT STATUS : Draft TRANSCRIBED BY: MODL DATE: 08/23/16 Robby and admitted as described on admission history and physical examination. Additional history included: 1. Hospitalization here 06/05/2016 to 06/14/2016 with sepsis secondary to Klebsiella and Pseudomonas pneumonia. 2. Acute on chronic hypoxic respiratory failure. 3. Acute on chronic diastolic heart failure. 4. Acute on chronic asthma exacerbation. 5. Urinary retention. 6. Chronic dysphagia. 7. Debility. She had been admitted here 03/16/2016 to 03/20/2016 with a left hip fracture. She had been admitted here 02/06/2016 to 02/12/2016 with severe hyponatremia and metabolic encephalopathy secondary to same. In this setting, there was a history of 1-week of increasing shortness of breath, cough, congestion, and wheezing that failed to respond to outpatient antimicrobial therapy. Additional history per Dr. Bustamante. PHYSICAL EXAMINATION: Per Dr. Bustamante. ADMISSION LABORATORY: Per Dr. Bustamante. HOSPITAL COURSE: She was admitted by Dr. Bustamante with: 1. Acute hypoxemic respiratory failure and thought secondary to cardiac and pulmonary etiology. 2. COPD/asthma exacerbation. 3. CHF exacerbation. 4. Hyponatremia. 5. All in the setting of the above-mentioned multiple comorbidities. On admission, cultures were obtained. She was started on O2 bronchodilator therapy, IV steroids, broad-spectrum antimicrobial therapy, and IV diuretics. She was placed on fluid restriction. Her hospitalist care was assumed by Dr. Kraft on 08/18 and 08/19. She was subsequently seen by the undersigned on 08/20, 07/24, 08/22, and 08/23. With the above-mentioned therapy, there was fairly rapid improvement in her presenting symptoms. When initially seen by me on 08/20, she was less dyspneic. She still had some cough and sputum. Overall, she felt better and had a bit more energy. On that date, her sodium had increased to 135. However, her white count was 14,800. A bedside swallow study was worrisome for significant oropharyngeal dysphagia. A modified Discharge Summary [place] [address] [id number] [place]. [address] NAME: AXEL LINDO : 33 STATUS : DIS IN PAT#: [id number] AGE: 80 ADM/REG DATE : 08/17/16 MR#: [id number] REPORT SERV DATE: 08/26/16 DICTATED BY: ANTON MURO DATE: 08/23/16 REPORT STATUS : Draft TRANSCRIBED BY: EVELYN DATE: 08/23/16 barium swallow was done on 08/20 that exhibited deep penetration and aspiration. Recommendation was strict n.p.o. status versus palliative care. This was discussed with the patient and her son. PEG tube placement was recommended. Consultation was obtained with her radar air traffic controller, Dr. Flores. She was seen both by Yloie Sanz, Dr. Flores's nurse practitioner and Dr. Flores. The patient considered her options and elected to not have a PEG tube at this time understanding the risk and benefits. Dr. Flores recommended mechanical soft diet with aspiration precautions and outpatient speech therapy. The patient's major desire was to go back to [facility] on [address] with home health care. She began eating. She felt better. It was not clear that there was worsening aspiration with her p.o. She was followed carefully for worsening evident aspiration. On 08/23, she was still coughing but it was not worse. She had no sputum. She was not short of breath. She was not having chest pain. She was eating without nausea, and she had no dysuria. Her room air sats were 88, increasing to 95 on 2 L. She was afebrile. Her examination was unchanged with rales at her right greater than left base. A chest x-ray showed a large hiatal hernia. Low lung volumes. Linear atelectasis in the left lower lobe and a patchy opacity at the right base. Her procalcitonin the previous day had been 0.05. Her white count was 9.5, having been 14.8 on the 30th. Her sodium was 141. In view of her overall global health status, hospital improvement, and previously described desire, it was felt that she had achieved a level of improvement and stability where she could be safely transitioned to thrive with close followup there and in the outpatient setting by her primary care physician, Dr. Laith Sewell. She will have home health care. She will have med rec, PT evaluation and treatment, and speech therapy for oropharyngeal dysphagia evaluation and treatment. She will have O2 of 2 L/minute by nasal cannula 24 hours per day. She will continue diet as described above. She will be on a 1500 mL per 24-hour fluid restriction. She completed five days of Zithromax here. She completed six days of Rocephin and will continue Ceftin 500 mg twice daily for the next 8 days. Her other medications will be Norvasc 5 mg daily, aspirin 81 mg daily, BuSpar 5 mg twice daily reduced from 10 mg twice daily, Estrace vaginal cream every 7 days, gabapentin 100 mg daily, Singulair 10 mg daily, Remeron 7.5 mg at bedtime reduced from 15 mg, Nexium 40 mg daily, Zoloft 75 mg daily, Tylenol 650 mg every 6 hours as needed, Mucinex 600 mg twice daily, Zofran 4 mg p.o. sublingually every 4 hours as needed for nausea, tramadol 50 mg every 6 hours as needed, Atarax 12.5 mg at bedtime as needed, ProAir 2 puffs every 4 hours as needed, DuoNeb scheduled every 4 hours while awake; potassium 20 mEq daily with Lasix 20 Discharge Summary [address] [address] NAME: AXEL LINDO : 33 STATUS : DIS IN PAT#: [id number] AGE: 80 ADM/REG DATE : 08/17/16 MR#: [id number] REPORT SERV DATE: 08/26/16 DICTATED BY: ANTON MURO DATE: 08/23/16 REPORT STATUS : Draft TRANSCRIBED BY: EVELYN DATE: 08/23/16 mg daily, multivitamins daily, vitamin C daily, ranitidine 300 mg daily, Crestor 10 mg daily, Asmanex HFA two puffs twice daily, MiraLAX one packet every 48 hours, iron sulfate once daily. Discharge time greater than 60 minutes. DICTATED BY: Anton Muro M.D. DD/EVELYN Anton Muro M.D. / [id number] CC: Nancy Jackson M.D.
[2016-08-17 14:12] LABS: BASOPHILS 0.3 %; BASOPHILS ABSOLUTE 0.03 10/3/uL (0.0-0.16); EOSINOPHILS 0.7 %; EOSINOPHILS ABSOLUTE 0.06 10/3/uL (0.0-0.53); ER CBC TAT 0 Hrs 08 Mins; IMMATURE GRANULOCYTES 0.2 %; IMMATURE GRANULOCYTES ABSOLUTE 0.02 10/3/uL (0.0-0.11); LYMPHOCYTES 8.7 %; LYMPHOCYTES ABSOLUTE 0.78 10/3/uL (0.67-4.30); MEAN CORPUSCULAR HEMOGLOB 31.4 pg (26.0-34.0); MEAN PLATELET VOLUME 9.3 fL (9.2-13.0); MONOCYTES 8.3 %; MONOCYTES ABSOLUTE 0.74 10/3/uL (0.21-1.20); NEUTROPHILS 81.8 %; NEUTROPHILS ABSOLUTE 7.29 10/3/uL (2.02-8.40); PLATELET COUNT 273 10/3/uL (150-400); RBC DISTRIBUTION WIDTH 12.8 % (12.0-16.0); WHITE BLOOD CELLS 8.9 10/3/uL (4.5-10.5)
[2016-08-17 14:14] LABS: HEMATOCRIT 39.4 % (36.0-48.0); MANUAL DIFF NO %; MEAN CORPUS HGB CONC 35.5 g/dL (32.0-36.0); MEAN CORPUSCULAR VOLUME 88.3 fL (80-100); RED CELL COUNT 4.46 10/6/uL (4.0-5.6)
[2016-08-17 14:29] LABS: ALBUMIN 3.2 G/DL (3.5-5.0); BUN (BLOOD UREA NITROGEN) 12 MG/DL (6-23); CALCIUM, SERUM 8.8 MG/DL (8.5-10.4); CHLORIDE, SERUM 92 MMOL/L (96-112); CO2 (CARBON DIOXIDE) 28 MMOL/L (24-34); GFR AFRICAN AMERICAN 104 ML/MIN (>=60); GFR NON AFRICAN AMERICAN 90 ML/MIN (>=60); GLUCOSE, SERUM 107 MG/DL (60-99); POTASSIUM, SERUM 3.9 MMOL/L (3.5-5.3); SGOT(AST) 14 U/L (5-40); SGPT(ALT) 18 U/L (5-65); TOTAL BILIRUBIN 0.4 MG/DL (0-1.2); TOTAL PROTEIN 8.2 G/DL (6.0-8.5)
[2016-08-17 14:30] LABS: A/G RATIO 0.6 (0.7-1.9); ALKALINE PHOSPHATASE 127 U/L (45-117); SODIUM, SERUM 127 MMOL/L (135-148)
[~2016-08-17 14:37] MED LIST changes: -BUSPAR5 PO; -DURICEF; -MONODOX100 MG PO; -MUCINEX600 MG PO; -MULTIVIT/MIN PO; -T PO; -ZOFRAN ODT4 MG PO; -ZOLOFT25 MG PO
[2016-08-17 15:48] LABS: ASCORBIC ACID (UR NOT ORDER) NEG (NEG); BILIRUBIN, URINE NEGATIVE (NEG); ER URINALYSIS TAT 0 Hrs 15 Mins; KETONE, URINE NEGATIVE (NEG); LEUKOCYTE ESTERASE(NOT OR LARGE (NEG); NITRITE (URINE) NEG (NEG)
[2016-08-17 15:49] LABS: WBC (NOT ORDERED) (RFLEX) > 182 (0-5)
[2016-08-17 16:15] LABS: TROPONIN I <0.02 NG/ML (<0.05)
[2016-08-17] MEDS ORDERED: KLOR-CON M2020 MEQ PO (16:53)
[2016-08-17] MEDS ORDERED: MULTIVIT/MIN PO (16:53)
[2016-08-17] MEDS ORDERED: ZOLOFT25 MG PO (16:53)
[2016-08-17] MEDS ORDERED: MONODOX100 MG PO ×2 (16:54→16:58)
[2016-08-17] MEDS ORDERED: VITC500 PO (16:54)
[2016-08-17] MEDS ORDERED: DUONEB INH (16:55)
[2016-08-17] MEDS ORDERED: MUCINEX600 MG PO (16:56)
[2016-08-17] MEDS ORDERED: CRESTOR10 PO (16:59)
[2016-08-17] MEDS ORDERED: ZANTAC300 MG PO (16:59)
[2016-08-17] MEDS ORDERED: ASMANEX200 INH (16:59)
[2016-08-17] MEDS ORDERED: ESTRACE VAGIN42.5 GM V (17:00)
[2016-08-17] MEDS ORDERED: MIRALAX POWDER1 PKT PO (17:00)
[2016-08-17] MEDS ORDERED: NORV5 PO (17:01)
[2016-08-17] MEDS ORDERED: L20 PO (17:02)
[2016-08-17] MEDS ORDERED: NEXIUM40 PO (17:02)
[2016-08-17] MEDS ORDERED: NEUR100 PO (17:02)
[2016-08-17] MEDS ORDERED: ASAB PO (17:02)
[2016-08-17] MEDS ORDERED: BUSPAR10 PO (17:02)
[2016-08-17] MEDS ORDERED: FERROUS SULF325 M1 PO (17:03)
[2016-08-17] MEDS ORDERED: COMBIGAN0.2 MG/0.5 OPH (17:03)
[2016-08-17] MEDS ORDERED: XALAT OPH (17:03)
[2016-08-17] MEDS ORDERED: ULTRAM50 PO (17:04)
[2016-08-17] MEDS ORDERED: REM15 PO (17:04)
[2016-08-17] MEDS ORDERED: SINGULAIR1 PO (17:04)
[2016-08-17] MEDS ORDERED: PROAIR HFA INH (17:05)
[2016-08-17] MEDS ORDERED: AT25 PO (17:05)
[2016-08-17] MEDS ORDERED: T PO (17:05)
[2016-08-17 20:42] LABS: BE (BASE EXCESS) -0.2 MEQ/L (0 +/- 2.5); DEVICE NC; HCO3 (ACTUAL BICARBONATE) 24.9 MEQ/L (23-27); INSTRUMENT SERIAL # 8087; PCO2 (CO2 TENSION) 42 MMHG (35-45); PO2 (O2 TENSION) 96 MMHG (79-93); SAMPLE Arterial; pH 7.39 (7.37-7.43)
[2016-08-18 00:41] LABS: PROCALCITONIN <0.05 ng/mL (<0.5)
[2016-08-18 00:54] LABS: CK-MB 0.8 NG/ML; CPK 25 U/L (0-200); FOLATE 31.7 NG/ML (>5.2); ULTRASENSITIVE TSH 0.376 MCIU/ML (0.358-3.740)
[2016-08-18 04:40] LABS: BASOPHILS 0 %; EOSINOPHILS 0 %; IMMATURE GRANULOCYTES 0.2 %; IMMATURE GRANULOCYTES ABSOLUTE 0.02 10/3/uL (0.0-0.11); LYMPHOCYTES 5.8 %; LYMPHOCYTES ABSOLUTE 0.51 10/3/uL (0.67-4.30); MEAN CORPUSCULAR HEMOGLOB 31.1 pg (26.0-34.0); MEAN CORPUSCULAR VOLUME 88.9 fL (80-100); MEAN PLATELET VOLUME 9.6 fL (9.2-13.0); MONOCYTES 1.8 %; MONOCYTES ABSOLUTE 0.16 10/3/uL (0.21-1.20); NEUTROPHILS 92.2 %; NEUTROPHILS ABSOLUTE 8.16 10/3/uL (2.02-8.40); PLATELET COUNT 314 10/3/uL (150-400); RBC DISTRIBUTION WIDTH 12.8 % (12.0-16.0); WHITE BLOOD CELLS 8.9 10/3/uL (4.5-10.5)
[2016-08-18 04:48] LABS: MANUAL DIFF NO %
[2016-08-18 04:55] LABS: ALBUMIN 2.8 G/DL (3.5-5.0); CALCIUM, SERUM 9.1 MG/DL (8.5-10.4); CHLORIDE, SERUM 94 MMOL/L (96-112); CO2 (CARBON DIOXIDE) 26 MMOL/L (24-34); CPK 24 U/L (0-200); GFR AFRICAN AMERICAN 98 ML/MIN (>=60); GFR NON AFRICAN AMERICAN 85 ML/MIN (>=60); PHOSPHORUS, SERUM 4.2 MG/DL (2.5-4.5); POTASSIUM, SERUM 3.5 MMOL/L (3.5-5.3); SODIUM, SERUM 130 MMOL/L (135-148); TROPONIN I <0.02 NG/ML (<0.05)
[2016-08-18 04:57] LABS: BUN (BLOOD UREA NITROGEN) 18 MG/DL (6-23); CK-MB 0.8 NG/ML; GLUCOSE, SERUM 135 MG/DL (60-99)
[2016-08-19 04:33] LABS: BASOPHILS 0 %; EOSINOPHILS 0.1 %; EOSINOPHILS ABSOLUTE 0.01 10/3/uL (0.0-0.53); HEMATOCRIT 39.1 % (36.0-48.0); HEMOGLOBIN 13.5 g/dL (12.0-16.0); IMMATURE GRANULOCYTES 0.3 %; IMMATURE GRANULOCYTES ABSOLUTE 0.04 10/3/uL (0.0-0.11); LYMPHOCYTES 4.3 %; LYMPHOCYTES ABSOLUTE 0.63 10/3/uL (0.67-4.30); MEAN CORPUS HGB CONC 34.5 g/dL (32.0-36.0); MEAN CORPUSCULAR VOLUME 89.7 fL (80-100); MEAN PLATELET VOLUME 9.4 fL (9.2-13.0); MONOCYTES ABSOLUTE 0.59 10/3/uL (0.21-1.20); NEUTROPHILS 91.3 %; NEUTROPHILS ABSOLUTE 13.41 10/3/uL (2.02-8.40); PLATELET COUNT 334 10/3/uL (150-400); RBC DISTRIBUTION WIDTH 13.1 % (12.0-16.0); RED CELL COUNT 4.36 10/6/uL (4.0-5.6); WHITE BLOOD CELLS 14.7 10/3/uL (4.5-10.5)
[2016-08-19 04:34] LABS: MANUAL DIFF NO %
[2016-08-19 04:48] LABS: CALCIUM, SERUM 8.7 MG/DL (8.5-10.4); CHLORIDE, SERUM 96 MMOL/L (96-112); CO2 (CARBON DIOXIDE) 30 MMOL/L (24-34); GFR AFRICAN AMERICAN 69 ML/MIN (>=60); GFR NON AFRICAN AMERICAN 60 ML/MIN (>=60); GLUCOSE, SERUM 137 MG/DL (60-99); POTASSIUM, SERUM 3.9 MMOL/L (3.5-5.3); SODIUM, SERUM 131 MMOL/L (135-148)
[2016-08-19 04:52] LABS: BUN (BLOOD UREA NITROGEN) 34 MG/DL (6-23)
[2016-08-19 19:49] LABS: TROPONIN I <0.02 NG/ML (<0.05)
[2016-08-19 19:53] LABS: CK-MB 0.7 NG/ML; CPK 78 U/L (0-200)
[2016-08-20 06:04] LABS: BASOPHILS 0.1 %; BASOPHILS ABSOLUTE 0.01 10/3/uL (0.0-0.16); EOSINOPHILS 0.1 %; EOSINOPHILS ABSOLUTE 0.01 10/3/uL (0.0-0.53); HEMATOCRIT 44.2 % (36.0-48.0); HEMOGLOBIN 14.8 g/dL (12.0-16.0); IMMATURE GRANULOCYTES 0.3 %; IMMATURE GRANULOCYTES ABSOLUTE 0.05 10/3/uL (0.0-0.11); LYMPHOCYTES 6.6 %; LYMPHOCYTES ABSOLUTE 0.97 10/3/uL (0.67-4.30); MANUAL DIFF NO %; MEAN CORPUS HGB CONC 33.5 g/dL (32.0-36.0); MEAN CORPUSCULAR HEMOGLOB 30.8 pg (26.0-34.0); MEAN CORPUSCULAR VOLUME 91.9 fL (80-100); MEAN PLATELET VOLUME 9.4 fL (9.2-13.0); MONOCYTES 11.4 %; MONOCYTES ABSOLUTE 1.68 10/3/uL (0.21-1.20); NEUTROPHILS 81.5 %; NEUTROPHILS ABSOLUTE 12.03 10/3/uL (2.02-8.40); PLATELET COUNT 358 10/3/uL (150-400); RBC DISTRIBUTION WIDTH 13.3 % (12.0-16.0); RED CELL COUNT 4.81 10/6/uL (4.0-5.6); WHITE BLOOD CELLS 14.8 10/3/uL (4.5-10.5)
[2016-08-20 06:21] LABS: CALCIUM, SERUM 9.3 MG/DL (8.5-10.4); CHLORIDE, SERUM 99 MMOL/L (96-112); CO2 (CARBON DIOXIDE) 30 MMOL/L (24-34); CREATININE 0.75 MG/DL (0.55-1.02); GFR AFRICAN AMERICAN 86 ML/MIN (>=60); GFR NON AFRICAN AMERICAN 74 ML/MIN (>=60); SODIUM, SERUM 135 MMOL/L (135-148)
[2016-08-20 06:22] LABS: BUN (BLOOD UREA NITROGEN) 27 MG/DL (6-23); GLUCOSE, SERUM 99 MG/DL (60-99)
[2016-08-20 06:44] LABS: PROCALCITONIN <0.05 ng/mL (<0.5)
[2016-08-20 13:45] LABS: FERRITIN 187 NG/ML (8-252)
[2016-08-20 14:43] LABS: T PROTEIN (ELECT)(NOT OR 7.5 G/DL (6.0-8.5)
[2016-08-21 04:42] LABS: BASOPHILS 0.1 %; BASOPHILS ABSOLUTE 0.01 10/3/uL (0.0-0.16); EOSINOPHILS 0 %; HEMATOCRIT 39.8 % (36.0-48.0); HEMOGLOBIN 13.1 g/dL (12.0-16.0); IMMATURE GRANULOCYTES 0.4 %; IMMATURE GRANULOCYTES ABSOLUTE 0.04 10/3/uL (0.0-0.11); LYMPHOCYTES 9.6 %; LYMPHOCYTES ABSOLUTE 0.97 10/3/uL (0.67-4.30); MEAN CORPUS HGB CONC 32.9 g/dL (32.0-36.0); MEAN CORPUSCULAR HEMOGLOB 30.1 pg (26.0-34.0); MEAN CORPUSCULAR VOLUME 91.5 fL (80-100); MEAN PLATELET VOLUME 9.3 fL (9.2-13.0); MONOCYTES 10.1 %; MONOCYTES ABSOLUTE 1.02 10/3/uL (0.21-1.20); NEUTROPHILS 79.8 %; NEUTROPHILS ABSOLUTE 8.03 10/3/uL (2.02-8.40); PLATELET COUNT 285 10/3/uL (150-400); RBC DISTRIBUTION WIDTH 13.6 % (12.0-16.0); RED CELL COUNT 4.35 10/6/uL (4.0-5.6); WHITE BLOOD CELLS 10.1 10/3/uL (4.5-10.5)
[2016-08-21 04:43] LABS: MANUAL DIFF NO %
[2016-08-21 05:10] LABS: BUN (BLOOD UREA NITROGEN) 27 MG/DL (6-23); CALCIUM, SERUM 8.6 MG/DL (8.5-10.4); CHLORIDE, SERUM 104 MMOL/L (96-112); CO2 (CARBON DIOXIDE) 30 MMOL/L (24-34); CREATININE 0.65 MG/DL (0.55-1.02); GFR AFRICAN AMERICAN 96 ML/MIN (>=60); GFR NON AFRICAN AMERICAN 83 ML/MIN (>=60); GLUCOSE, SERUM 89 MG/DL (60-99); POTASSIUM, SERUM 4.3 MMOL/L (3.5-5.3); SODIUM, SERUM 142 MMOL/L (135-148)
[2016-08-21 11:25] LABS: A/G 0.92 RATIO (0.9-2.10); ALB RELATIVE % 47.9 % (60.0-89.0); ALBUMIN (ELECTRO) 3.59 GM/DL (3.2-5.5); ALPHA 2 (ELECTRO) 1.04 GM/DL (0.5-1.10); ALPHA 2 RELAT % 13.9 % (4.5-26.0); BETA RELATIVE % 14.7 % (9.0-22.0); GAMMA GLOBULIN (SPE) 1.46 G/DL (0.70-1.60); GAMMA RELAT % 19.5 % (6.0-22.0)
[2016-08-22 05:04] LABS: BASOPHILS 0.1 %; BASOPHILS ABSOLUTE 0.01 10/3/uL (0.0-0.16); EOSINOPHILS 0.6 %; EOSINOPHILS ABSOLUTE 0.06 10/3/uL (0.0-0.53); HEMOGLOBIN 12.8 g/dL (12.0-16.0); IMMATURE GRANULOCYTES 0.3 %; IMMATURE GRANULOCYTES ABSOLUTE 0.03 10/3/uL (0.0-0.11); LYMPHOCYTES 13.6 %; MEAN CORPUS HGB CONC 32.8 g/dL (32.0-36.0); MEAN CORPUSCULAR HEMOGLOB 30.7 pg (26.0-34.0); MEAN CORPUSCULAR VOLUME 93.5 fL (80-100); MEAN PLATELET VOLUME 9.6 fL (9.2-13.0); MONOCYTES 11.3 %; MONOCYTES ABSOLUTE 1.16 10/3/uL (0.21-1.20); NEUTROPHILS 74.1 %; NEUTROPHILS ABSOLUTE 7.63 10/3/uL (2.02-8.40); PLATELET COUNT 300 10/3/uL (150-400); RBC DISTRIBUTION WIDTH 13.6 % (12.0-16.0); RED CELL COUNT 4.17 10/6/uL (4.0-5.6); WHITE BLOOD CELLS 10.3 10/3/uL (4.5-10.5)
[2016-08-22 05:07] LABS: MANUAL DIFF NO %
[2016-08-22 05:11] LABS: CALCIUM, SERUM 9.2 MG/DL (8.5-10.4); CHLORIDE, SERUM 103 MMOL/L (96-112); CO2 (CARBON DIOXIDE) 33 MMOL/L (24-34); CREATININE 0.78 MG/DL (0.55-1.02); GFR AFRICAN AMERICAN 82 ML/MIN (>=60); GFR NON AFRICAN AMERICAN 71 ML/MIN (>=60); POTASSIUM, SERUM 4.5 MMOL/L (3.5-5.3); SODIUM, SERUM 140 MMOL/L (135-148)
[2016-08-22 05:12] LABS: BUN (BLOOD UREA NITROGEN) 31 MG/DL (6-23); GLUCOSE, SERUM 108 MG/DL (60-99)
[2016-08-22 07:04] LABS: PROCALCITONIN 0.05 ng/mL (<0.5)
[2016-08-23 06:31] LABS: CALCIUM, SERUM 9.1 MG/DL (8.5-10.4); CHLORIDE, SERUM 102 MMOL/L (96-112); CO2 (CARBON DIOXIDE) 33 MMOL/L (24-34); CREATININE 0.71 MG/DL (0.55-1.02); GFR AFRICAN AMERICAN 92 ML/MIN (>=60); GFR NON AFRICAN AMERICAN 79 ML/MIN (>=60); GLUCOSE, SERUM 99 MG/DL (60-99); POTASSIUM, SERUM 3.9 MMOL/L (3.5-5.3); SODIUM, SERUM 141 MMOL/L (135-148)
[2016-08-23 06:32] LABS: BUN (BLOOD UREA NITROGEN) 24 MG/DL (6-23)
[2016-08-23 06:41] LABS: BASOPHILS 0.1 %; BASOPHILS ABSOLUTE 0.01 10/3/uL (0.0-0.16); EOSINOPHILS 1.7 %; EOSINOPHILS ABSOLUTE 0.16 10/3/uL (0.0-0.53); HEMATOCRIT 39.6 % (36.0-48.0); IMMATURE GRANULOCYTES 0.2 %; IMMATURE GRANULOCYTES ABSOLUTE 0.02 10/3/uL (0.0-0.11); LYMPHOCYTES 10.2 %; LYMPHOCYTES ABSOLUTE 0.97 10/3/uL (0.67-4.30); MEAN CORPUS HGB CONC 32.8 g/dL (32.0-36.0); MEAN CORPUSCULAR HEMOGLOB 30.8 pg (26.0-34.0); MEAN CORPUSCULAR VOLUME 93.8 fL (80-100); MEAN PLATELET VOLUME 9.5 fL (9.2-13.0); MONOCYTES 8.8 %; MONOCYTES ABSOLUTE 0.84 10/3/uL (0.21-1.20); NEUTROPHILS ABSOLUTE 7.52 10/3/uL (2.02-8.40); PLATELET COUNT 297 10/3/uL (150-400); RBC DISTRIBUTION WIDTH 13.5 % (12.0-16.0); RED CELL COUNT 4.22 10/6/uL (4.0-5.6); WHITE BLOOD CELLS 9.5 10/3/uL (4.5-10.5)
[2016-08-23 06:46] LABS: MANUAL DIFF NO %
[2016-08-23] MEDS ORDERED: BUSPAR5 PO (11:20)
[2016-08-23] MEDS ORDERED: ZOFRAN ODT4 MG PO (11:30)
[2016-08-23] MEDS ORDERED: DURICEF (11:37)
== END 2016-08-23 14:32 | disposition home health service (06) | DRG 291 ==
LOC: ER 14:37 → 6NO 20:21
PROVIDERS: Internal Medicine; Nurse Practitioner
DX: I11.0 Hypertensive heart disease with heart failure (principal); J96.01 Acute respiratory failure with hypoxia; J69.0 Pneumonitis due to inhalation of food and vomit; G92 Toxic encephalopathy; E22.2 Syndrome of inappropriate secretion of antidiuretic hormone; J44.1 Chronic obstructive pulmonary disease with (acute) exacerbation; N39.0 Urinary tract infection, site not specified; J45.901 Unspecified asthma with (acute) exacerbation; I50.33 Acute on chronic diastolic (congestive) heart failure; I25.10 Atherosclerotic heart disease of native coronary artery without angina pectoris; R13.12 Dysphagia, oropharyngeal phase; F41.9 Anxiety disorder, unspecified; F32.9 Major depressive disorder, single episode, unspecified; I48.0 Paroxysmal atrial fibrillation; M19.90 Unspecified osteoarthritis, unspecified site; M81.0 Age-related osteoporosis without current pathological fracture; K21.9 Gastro-esophageal reflux disease without esophagitis; E78.5 Hyperlipidemia, unspecified; B96.20 Unspecified Escherichia coli [E. coli] as the cause of diseases classified elsewhere; Z53.20 Procedure and treatment not carried out because of patient's decision for unspecified reasons; Z90.710 Acquired absence of both cervix and uterus; Z86.12 Personal history of poliomyelitis; Z87.440 Personal history of urinary (tract) infections
CPT/HCPCS: 36600; 71010; 74230; 80048; 80053; 80069; 81001; 82550; 82553; 82607; 82728; 82746; 82805; 83735; 83880; 84100; 84145; 84155; 84165; 84439; 84443; 84484; 85025; 86334; 87040; 87070; 87077; 87086; 87186; 87205; 92610-GN; 92611-GN; 93005; 93306; 94640; 96374; 96375; 97110-GP; 97116-GP; 97162-GP; 99285; A9270-GY; C9113; J1940; J2920; J2930; J3411